=== PATIENT | male | born 1940 | race Caucasian/White ===

== ENCOUNTER → 2017-09-21 | Outpatient (CLI) | payer BC ==
[2017-09-21 09:51] LABS: BASO % 0.3 %; BASO ABS # 0.03 K/uL (0-0.2); COMPLETE YES; EOS % 1.8 %; HEMATOCRIT 45.2 % (42-52); IG% 0.3 %; LYMPH ABS # 2.41 K/uL (1.2-3.4); MEAN CORPUSCULAR HEMOGLOBIN 31.1 pg (25-34); MEAN CORPUSCULAR HGB CONC 34.5 g/dl (32-36); MONO % 5.6 %; PLATELET COUNT 205 K/uL (130-400); RED BLOOD COUNT 5.02 M/uL (4.7-6.1); WHITE BLOOD COUNT 10.04 K/uL (4.8-10.8)
[2017-09-21 10:20] LABS: ALT/SGPT 28 U/L (12-78); BLOOD UREA NITROGEN 26 mg/dl (7-18); CALCIUM 8.8 mg/dl (8.5-10.1); CARBON DIOXIDE 25 mmol/L (21-32); CHLORIDE 107 mmol/L (98-107); CHOLESTEROL 133 mg/dl (0-200); CREATININE 1.36 mg/dl (0.60-1.40); GLUCOSE 96 mg/dl (70-99); SODIUM 140 mmol/L (136-145)
[2017-09-21 10:26] LABS: ALB/GLOB RATIO 0.9 (0.9-2); ALKALINE PHOSPHATASE 68 U/L (45-117); AST/SGOT 25 U/L (15-37); CHOLESTEROL/HDL RATIO 3.5; HDL CHOLESTEROL 38 mg/dl; LDL CHOLESTEROL CALCULATED 68 mg/dl; TRIGLYCERIDES 134 mg/dl (0-150); VERY LOW DENSITY LIPOPROT CALC 27 mg/dl
== END | disposition home or self-care (01) ==
LOC: C.LAB 09:18
PROVIDERS: ATTEND Nurse Practitioner Adult Health
DX: Z00.00 Encounter for general adult medical examination without abnormal findings (principal); Z12.5 Encounter for screening for malignant neoplasm of prostate

== ENCOUNTER → 2018-04-07 | Outpatient (CLI) | payer OTHER ==
--- NOTE | 2018-04-07 14:54 | DIAGNOSTIC IMAGING REPORT ---
L-SPINE MIN 4 VIEWS ROUTINE CLINICAL HISTORY: M54.5 Chronic low back [id number] COMPARISON STUDY: No previous studies for comparison. FINDINGS: There is a moderate spinal curvature. There are moderate multilevel degenerative changes with multilevel disc formation and anterior posterior osteophyte formation. There is right SI joint sclerosis, likely degenerative. There is narrowing of the AP diameter of the spinal canal and underlying spinal stenosis is suspected. MRI might be considered in follow-up. IMPRESSION: 1. No acute fractures or subluxations 2. Moderate multilevel degenerative change. 3. Conventional radiographic findings suggesting underlying spinal stenosis. An MRI could be obtained in follow-up as deemed clinically indicated. Electronically signed by: Jacques Harrell M.D. 04/07/2018 2:53 PM Dictated Date/Time: 04/07/2018 2:52 PM
== END | disposition home or self-care (01) ==
LOC: C.RAD1850 14:35
PROVIDERS: ATTEND Neuromusculoskeletal Medicine & OMM
DX: M54.5 Low back pain (principal)

== ENCOUNTER 2023-02-09 08:04 | Observation (INO) ==
--- NOTE | 2023-02-09 08:57 | Emergency Department Note ---
Impression & Plan Unsteady gait, Balance disorder ED Provider Note INFORMANT: Patient ED PROVIDER(S): Steven Huber DO CHIEF COMPLAINT: Unsteady, balance is off PLAN: Disposition: Admission Outpatient prescription management: none Discussion with: I spoke with the hospitalist, who will see the patient for admission/observation and further evaluation and consultation. MEDICAL DECISION MAKING: This is a 83-year-old male who presents to the ED with a chief complaint of feeling that his balance is off. Initially states he felt a little unusual around noon yesterday while he was watching TV. He states that it felt like someone switched off his brain for second. He then states that last night around 11:30 PM, he was laying in bed reading. He states that the same thing occurred. He felt just slightly dizzy and took a meclizine and went to bed. He reports that he took the meclizine because of some vertigo in the past. The patient states that around 3 AM when he got up to go to the bathroom, he felt like his balance was off and he had to hold the gonsalez in order to get to the bathroom. He also had a little sensation of tingling all over. This morning when he awoke, he continued to feel unsteady as if he is unable to walk. He had not had the symptoms previously. His son states that he has an ataxic gait with leaning towards the right. The patient denies any focal neurologic deficits. Denies any injury or trauma. Denies any recent illness. His vital signs reveal hypertension. His physical exam was unremarkable. No focal neurologic deficits on my exam. Cerebellar testing was within normal limits. No facial droop. No pronator drift. No focal weakness. No nystagmus. EKG shows a sinus rhythm at a rate of 63. CBC did not show anemia or leukocytosis. Chemistry panel shows no electrolyte abnormality or kidney dysfunction. Chest x-ray did not show any clear abnormality. Radiologist suggests some left basilar atelectasis versus pneumonia. Patient has no clinical symptoms of pneumonia when questioned after the chest x-ray was done. Troponin was negative for myocarditis or myocardial infarction. CT scan of the head and angiograms of the head and neck did not show any concerning findings. I did talk to the patient about the results of th e test. The patient will be seen by the hospitalist for further evaluation and care. He was treated with aspirin p.o. Triage Nursing notes reviewed. Vital Signs: reviewed Prior /Outside records reviewed: none Differential diagnosis: CVA, vertigo, anemia, viral syndrome, labyrinthitis, less likely infection, spinal cord issue, other Diagnostics, as interpreted by me: 12 lead ECG: Sinus rhythm rate of 63. First-degree AV block. No ST elevation. No PVCs. Normal QTc Cardiac Monitoring ordered: Sinus rhythm in the 60s Medical decision rules: none Imaging studies: Chest x-ray: No acute disease. No pneumonia. CT scan of the brain: No intracranial hemorrhage. Procedures: none. Critical care: none. HPI: See MDM above. PAST MEDICAL HISTORY: See Below PAST SURGICAL HISTORY: See Below SOCIAL HISTORY: See Below HOME MEDICATIONS: See Below ALLERGIES: See Below VITALS: See Below PHYSICAL EXAMINATION: See MDM for positive findings otherwise unremarkable. CONSTITUTIONAL/VITAL SIGNS: Reviewed GENERAL:done as appropriate INTEGUMENTARY: done as appropriate HEAD: done as appropriate EYES: done as appropriate RESPIRATORY: done as appropriate CARDIOVASCULAR:done as appropriate GI/ABDOMEN:done as appropriate EXTREMITIES: done as appropriate NEUROLOGICAL: done as appropriate PSYCHIATRIC:done as appropriate MUSCULOSKELETAL:done as appropriate TRIAGE NURSING DOCUMENTATION REVIEWED. Past Med/Surg History Medical History Chronic low back pain Chronic sinusitis COPD (chronic obstructive pulmonary disease) Exposure to benzene Pneumonia Renal cyst, bridgeport, hemorrhage Surgical History H/O hernia repair S/P appendectomy Family History Mother Breast cancer Father Colorectal cancer Myocardial infarction Denies family history of Ovarian cancer Prostate cancer Social History Smoking Status: Never smoker Second Hand Exposure: No; Hx Alcohol Use: No Hx Substance Use: No Preferred Language: Albanian Communication Ability: Effective Visual Impairment: No Limitations Hearing Ability: Normal Station Usher Required: No marital status: Current Living Situation: Spouse current occupational status: retired How many Children do You have: 4 Feels Safe at Home: Yes Childhood Exposure to Second-Hand Smoke: Yes caffeine: No during the past year weight has: remained stable Dental Care, Regularly: No Physical Activity Frequency: Daily Seatbelt Use: always Sunscreen Use: No Assistive Devices: Glasses Allergies Allergies Allergy/AdvReac Type Severity Reaction Status Date / Time No Known Allergies Allergy Verified 12/26/22 12:59 Home Meds Home Medications Medication Instructions Recorded Confirmed multivitamin (Daily Multi-Vitamin 1 tab PO DAILY 10/04/19 12/26/22 tablet) Results & Data (ED) Vital Signs Vital Signs - 24 hr 02/09/23 08:05 02/09/23 08:29 02/09/23 08:23 Temperature 36.8 C Temperature Source Skin Pulse Rate 68 63 67 Respiratory Rate 20 20 Respiratory Effort / Characteristics Non-Labored Spontaneous Respiratory Depth Normal Respiratory Pattern Regular Blood Pressure 188/113 H 155/95 H Blood Pressure Mean 138 115 Pulse Oximetry 97 97 Oxygen Delivery Method Room Air Room Air Sepsis Recent Fever Within 48 Hours No Sepsis New/Unexplained Change in Mental Status N/A Sepsis Action Taken by Nursing No Action Required 02/09/23 09:00 02/09/23 09:30 Temperature Temperature Source Pulse Rate 66 62 Respiratory Rate 19 21 Respiratory Effort / Characteristics Respiratory Depth Respiratory Pattern Blood Pressure 152/94 H 154/99 H Blood Pressure Mean 113 117 Pulse Oximetry 96 96 Oxygen Delivery Method Room Air Room Air Sepsis Recent Fever Within 48 Hours Sepsis New/Unexplained Change in Mental Status Sepsis Action Taken by Nursing Laboratory Data 02/09/23 08:30 02/09/23 08:30 Lab Results 02/09/23 02/09/23 02/09/23 Range/Units 08:30 08:30 08:30 WBC 8.85 (4.8-10.8) K/ul RBC 4.91 (4.70-6.10) M/uL Hgb 15.6 (14.0-18.0) g/dl Hct 44.0 (42.0-52.0) % MCV 89.6 (80.0-100.0) fL MCH 31.8 (25.0-34.0) pg MCHC 35.5 (32.0-36.0) g/dL RDW Std Deviation 42.4 (36.4-46.3) fL RDW Coeff of Ngozi 12.8 (11.5-14.5) % Plt Count 214 (130-400) K/uL MPV 9.1 L (9.4-12.4) fL Immature Gran % (Auto) 0.2 % Neut % (Auto) 60.0 % Lymph % (Auto) 28.5 % [place]estone % (Auto) 8.0 % Eos % (Auto) 2.7 % Baso % (Auto) 0.6 % Neut # (Auto) 5.31 (1.40-6.50) K/uL Lymph # (Auto) 2.52 (1.2-3.4) K/uL Limestone # (Auto) 0.71 H (0.11-0.59) K/uL Eos # (Auto) 0.24 (0-0.50) K/uL Baso # (Auto) 0.05 (0-0.2) K/uL Immature Gran # (Auto) 0.02 (0.01-0.20) K/uL PT 10.8 (9.0-12.0) Seconds INR 1.0 (0.9-1.1) APTT 27.1 (21.0-31.0) Seconds PTT Ratio 1.0 Sodium 138 (136-145) mmol/L Potassium 3.8 (3.5-5.1) mmol/L Chloride 106 (98-107) mmol/L Carbon Dioxide 25 (21-32) mmol/L Anion Gap 7 (3-11) BUN 28 H (6-23) mg/dl Creatinine 1.37 (0.6-1.4) mg/dl Est Cr Clr Drug Dosing 46.3 ml/min Est GFR ( Amer) 54.5 ml/min Est GFR (Non-Af Amer) 47.0 ml/min BUN/Creatinine Ratio 20.4 H (10-20) Glucose 152 H (70-99(Fasting)) mg/dl Calcium 8.9 (8.5-10.1) mg/dl Magnesium 2.1 (1.7-2.4) mg/dl Total Bilirubin 0.6 (0.2-1.0) mg/dl AST 20 (13-39) U/L ALT 16 (7-52) U/L Alkaline Phosphatase 56 (34-104) U/L Troponin I High Sens 8.0 (0-20) pg/ml Total Protein 7.5 (6.0-8.3) gm/dl Albumin 4.1 (3.4-5.0) gm/dl Globulin 3.4 (2.5-4.0) gm/dl Albumin/Globulin Ratio 1.2 (0.9-2) Administered Medications Discontinued Medications Ioversol (Optiray 320 500ml) 110 ml IV ONCE ONE Stop: 02/09/23 09:51 Last Admin: 02/09/23 09:50 Dose: 110 ml Documented By: BAR Imaging Data Radiologist's Impression: Chest X-Ray 02/09/23 08:51 XR chest 1V portable HISTORY: 83 years-old Male neuro deficit, acute stroke suspected acute chest pain COMPARISON: None TECHNIQUE: AP view of the chest FINDINGS: Cardiomediastinal and hilar silhouettes are within normal limits. Subsegmental l eft basilar densities with mild left hemidiaphragmatic elevation. No pneumothorax, large pleural effusion or overt pulmonary edema. Degenerative changes of the shoulders and spine. IMPRESSION: Subsegmental left basilar densities may represent atelectasis versus a mild pneumonitis. ACT 112: Negative or not required by law. The above report was generated using voice recognition software. It may contain grammatical, syntax or spelling errors. Electronically signed by: Mauri Witt M.D. 02/09/2023 9:[address] 02/09/23 08:[address] OF THE BRAIN; CT ANGIOGRAM OF THE BRAIN; CT ANGIOGRAM OF THE NECK CLINICAL HISTORY: Strokelike symptoms. Dizziness. Neurological deficit. COMPARISON STUDY: No priors. TECHNIQUE: Unenhanced axial CT scan of the brain is performed. Subsequently, fo llowing the IV administration of 110 of Optiray 320, CT angiogram of the head and neck was performed from the aortic arch to the vertex. Images are reviewed in the axial, sagittal, and coronal planes. 3-D MIPS images are created and assessed. IV contrast was administered without complication. All measurements were calculated based on NASCET criteria. A dose lowering technique was utilized adhering to the principles of ALARA. CT DOSE: 1642.00 mGycm (accession [id number]), 1114.48 mGy.cm (accession [id number]) FINDINGS: Brain parenchyma: There is age-related involutional change noting moderate patchy subcortical and periventricular microangiopathic disease. There is no hemorrhage, mass effect, or evidence of acute territorial ischemia by CT criteria. There is no evidence of enhancing mass lesion on the angiogram phase images. The ventricles, sulci, and cisterns are prominent secondary to involutional change. Godwin-white matter differentiation is preserved. No extra- axial fluid collection is seen. Thoracic aorta: Visualized portions of the thoracic aorta are normal in caliber. The aortic arch demonstrates standard 3-vessel anatomy. Right carotid arterial system: The right common carotid artery is widely patent, as are the right internal and external carotid arteries. The internal carotid artery demonstrates a peak appearance suggesting fibromuscular dysplasia. Left carotid arterial system: The left common carotid artery is widely patent, as are the left internal and external carotid arteries. The internal carotid artery demonstrates a beaded appearance suggesting fibromuscular dysplasia. Vertebral arteries: The vertebral arteries are widely patent bilaterally and codominant. Subclavian arteries: Widely patent bilaterally. Intracranial vasculature: There is atherosclerotic calcification of the cavernous carotid arteries. The internal carotid arteries are patent at the skull base, as are the anterior and middle cerebral arteries bilaterally. The vertebrobasilar system and posterior cerebral arteries are widely patent. The vertebral arteries are codominant.. There is no aneurysm, high-grade stenosis, or focal vessel cut off seen throughout the intracranial circulation. Jugular veins: Patent bilaterally. Dural sinuses: Patent. Lung apices: Partially visualized upper lobe lung parenchyma appears clear. Soft tissues: The visualized pharyngeal soft tissues are normal in appearance noting angiographic phase technique. The oropharyngeal airway appears widely patent. The salivary and thyroid glands are normal in appearance. No cervical lymphadenopathy is seen. Skeletal structures: The skeletal structures are osteopenic. The calvarium appears intact. The cervical spine is within maintained noting multilevel spondylosis. No lytic or blastic lesion is seen. Orbits: The bony orbits are intact. Orbital contents are normal as visualized. Sinuses and mastoids: There is evidence of previous paranasal sinus surgery. There is moderate mucosal thickening in the right maxillary antrum and the sphenoid sinuses. Trace mucosal thickening is seen in the left maxillary sinus. Thickening and sclerosis of the right maxillary sinus wall indicates chronicity. The mastoid air cells are well pneumatized. IMPRESSION: 1. There is no hemorrhage, mass effect, or evidence of acute territorial isc hemia by CT criteria. 2. Unremarkable CT angiogram of the brain. 3. The internal carotid arteries demonstrate a beaded appearance bilaterally suggesting fibromuscular dysplasia. 4. The carotid and vertebral arteries are patent bilaterally no significant stenosis identified. ACT 112: Negative or not required by law. Electronically signed by: Teddy Clarke M.D. 02/09/2023 10:03 AM Head CTA 02/09/23 08:[address] OF THE BRAIN; CT ANGIOGRAM OF THE BRAIN; CT ANGIOGRAM OF THE NECK CLINICAL HISTORY: Strokelike symptoms. Dizziness. Neurological deficit. COMPARISON STUDY: No priors. TECHNIQUE: Unenhanced axial CT scan of the brain is performed. Subsequently, following the IV administration of 110 of Optiray 320, CT angiogram of the head and neck was performed from the aortic arch to the vertex. Images are reviewed in the axial, sagittal, and coronal planes. 3-D MIPS images are created and assessed. IV contrast was administered without complication. All measurements were calculated based on NASCET criteria. A dose lowering technique was utilized adhering to the principles of ALARA. CT DOSE: 1642.00 mGycm (accession [id number]), 1114.48 mGy.cm (accession [id number]) FINDINGS: Brain parenchyma: There is age-related involutional change noting moderate patchy subcortical and periventricular microangiopathic disease. There is no hemorrhage, mass effect, or evidence of acute territorial ischemia by CT criteria. There is no evidence of enhancing mass lesion on the angiogram phase images. The ventricles, sulci, and cisterns are prominent secondary to involutional change. Godwin-white matter differentiation is preserved. No extra- axial fluid collection is seen. Thoracic aorta: Visualized portions of the thoracic aorta are normal in caliber. The aortic arch demonstrates standard 3-vessel anatomy. Right carotid arterial system: The right common carotid artery is widely patent, as are the right internal and external carotid arteries. The internal carotid artery demonstrates a peak appearance suggesting fibromuscular dysplasia. Left carotid arterial system: The left common carotid artery is widely patent, as are the left internal and external carotid arteries. The internal carotid artery demonstrates a beaded appearance suggesting fibromuscular dysplasia. Vertebral arteries: The vertebral arteries are widely patent bilaterally and codominant. Subclavian arteries: Widely patent bilaterally. Intracranial vasculature: There is atherosclerotic calcification of the cavernous carotid arteries. The internal carotid arteries are patent at the skull base, as are the anterior and middle cerebral arteries bilaterally. The vertebrobasilar system and posterior cerebral arteries are widely patent. The vertebral arteries are codominant.. There is no aneurysm, high-grade stenosis, or focal vessel cut off seen throughout the intracranial circulation. Jugular veins: Patent bilaterally. Dural sinuses: Patent. Lung apices: Partially visualized upper lobe lung parenchyma appears clear. Soft tissues: The visualized pharyngeal soft tissues are normal in appearance noting angiographic phase technique. The oropharyngeal airway appears widely patent. The salivary and thyroid glands are normal in appearance. No cervical lymphadenopathy is seen. Skeletal structures: The skeletal structures are osteopenic. The calvarium appears intact. The cervical spine is within maintained noting multilevel spondylosis. No lytic or blastic lesion is seen. Orbits: The bony orbits are intact. Orbital contents are normal as visualized. Sinuses and mastoids: There is evidence of previous paranasal sinus surgery. There is moderate mucosal thickening in the right maxillary antrum and the sphenoid sinuses. Trace mucosal thickening is seen in the left maxillary sinus. Thickening and sclerosis of the right maxillary sinus wall indicates chronicity. The mastoid air cells are well pneumatized. IMPRESSION: 1. There is no hemorrhage, mass effect, or evidence of acute territorial ischemi a by CT criteria. 2. Unremarkable CT angiogram of the brain. 3. The internal carotid arteries demonstrate a beaded appearance bilaterally suggesting fibromuscular dysplasia. 4. The carotid and vertebral arteries are patent bilaterally no significant stenosis identified. ACT 112: Negative or not required by law. Electronically signed by: Teddy Clarke M.D. 02/09/2023 10:03 AM Neck CTA 02/09/23 08:[address] OF THE BRAIN; CT ANGIOGRAM OF THE BRAIN; CT ANGIOGRAM OF THE NECK CLINICAL HISTORY: Strokelike symptoms. Dizziness. Neurological deficit. COMPARISON STUDY: No priors. TECHNIQUE: Unenhanced axial CT scan of the brain is performed. Subsequently, following the IV administration of 110 of Optiray 320, CT angiogram of the head and neck was performed from the aortic arch to the vertex. Images are reviewed in the axial, sagittal, and coronal planes. 3-D MIPS images are created and assessed. IV contrast was administered without complication. All measurements were calculated based on NASCET criteria. A dose lowering technique was utilized adhering to the principles of ALARA. CT DOSE: 1642.00 mGycm (accession [id number]), 1114.48 mGy.cm (accession [id number]) FINDINGS: Brain parenchyma: There is age-related involutional change noting moderate patchy subcortical and periventricular microangiopathic disease. There is no hemorrhage, mass effect, or evidence of acute territorial ischemia by CT criteria. There is no evidence of enhancing mass lesion on the angiogram phase images. The ventricles, sulci, and cisterns are prominent secondary to involutional change. Godwin-white matter differentiation is preserved. No extra- axial fluid collection is seen. Thoracic aorta: Visualized portions of the thoracic aorta are normal in caliber. The aortic arch demonstrates standard 3-vessel anatomy. Right carotid arterial system: The right common carotid artery is widely patent, as are the right internal and external carotid arteries. The internal carotid artery demonstrates a peak appearance suggesting fibromuscular dysplasia. Left carotid arterial system: The left common carotid artery is widely patent, as are the left internal and external carotid arteries. The internal carotid artery demonstrates a beaded appearance suggesting fibromuscular dysplasia. Vertebral arteries: The vertebral arteries are widely patent bilaterally and codominant. Subclavian arteries: Widely patent bilaterally. Intracranial vasculature: There is atherosclerotic calcification of the cavernous carotid arteries. The internal carotid arteries are patent at the skull base, as are the anterior and middle cerebral arteries bilaterally. The vertebrobasilar system and posterior cerebral arteries are widely patent. The vertebral arteries are codominant.. There is no aneurysm, high-grade stenosis, or focal vessel cut off seen throughout the intracranial circulation. Jugular veins: Patent bilaterally. Dural sinuses: Patent. Lung apices: Partially visualized upper lobe lung parenchyma appears clear. Soft tissues: The visualized pharyngeal soft tissues are normal in appearance noting angiographic phase technique. The oropharyngeal airway appears widely patent. The salivary and thyroid glands are normal in appearance. No cervical lymphadenopathy is seen. Skeletal structures: The skeletal structures are osteopenic. The calvarium appears intact. The cervical spine is within maintained noting multilevel spondylosis. No lytic or blastic lesion is seen. Orbits: The bony orbits are intact. Orbital contents are normal as visualized. Sinuses and mastoids: There is evidence of previous paranasal sinus surgery. There is moderate mucosal thickening in the right maxillary antrum and the sphenoid sinuses. Trace mucosal thickening is seen in the left maxillary sinus. Thickening and sclerosis of the right maxillary sinus wall indicates chronicity. The mastoid air cells are well pneumatized. IMPRESSION: 1. There is no hemorrhage, mass effect, or evidence of acute territorial ischemia by CT criteria. 2. Unremarkable CT angiogram of the brain. 3. The internal carotid arteries demonstrate a beaded appearance bilaterally suggesting fibromuscular dysplasia. 4. The carotid and vertebral arteries are patent bilaterally no significant stenosis identified. ACT 112: Negative or not required by law. Electronically signed by: Teddy Clarke M.D. 02/09/2023 10:03 AM Discharge Plan Visit Data Chief Complaint: Dizziness Stated Complaint: STROKE SYMPTOMS ED Provider: Steven Huber Discharge Problem: Unsteady gait, Balance disorder Patient Disposition: Being Evaluated by Hospitalist Forms Stand Alone Forms: [facility], Virtual Emergency Department, Important Visit Information Prescriptions Prescriptions: No Action multivitamin [Daily Multi-Vitamin] tablet 1 tab PO DAILY Referrals Referrals: Dorota Benítez MD [Primary Care Provider] -
[2023-02-09 09:14] LABS: Basophils # (auto) 0.05 K/uL (0-0.2); Basophils % (auto) 0.6 %; Eosinophils # (auto) 0.24 K/uL (0-0.50); Eosinophils % (auto) 2.7 %; Hemoglobin 15.6 g/dl (14.0-18.0); Immature Granulocytes # (auto) 0.02 K/uL (0.01-0.20); Immature Granulocytes % (auto) 0.2 %; Lymphocytes # (auto) 2.52 K/uL (1.2-3.4); Lymphocytes % (auto) 28.5 %; Mean Corpuscular Hemoglobin 31.8 pg (25.0-34.0); Mean Corpuscular Hgb Conc 35.5 g/dL (32.0-36.0); Mean Corpuscular Volume 89.6 fL (80.0-100.0); Mean Platelet Volume 9.1 fL (9.4-12.4); Monocytes # (auto) 0.71 K/uL (0.11-0.59); Neutrophils # (auto) 5.31 K/uL (1.40-6.50); Platelet Count 214 K/uL (130-400); RDW Coefficient of Variation 12.8 % (11.5-14.5); RDW Standard Deviation 42.4 fL (36.4-46.3); Red Blood Count 4.91 M/uL (4.70-6.10); White Blood Count 8.85 K/ul (4.8-10.8)
[2023-02-09 09:20] LABS: Albumin Globulin Ratio 1.2 (0.9-2); Albumin Level 4.1 gm/dl (3.4-5.0); BUN Creatinine Ratio 20.4 (10-20); Bilirubin,Total 0.6 mg/dl (0.2-1.0); Calcium 8.9 mg/dl (8.5-10.1); Creatinine Clr Calc Pharmacy 46.3 ml/min; Est GFR (African American) 54.5 ml/min; Globulin 3.4 gm/dl (2.5-4.0); Magnesium 2.1 mg/dl (1.7-2.4); Potassium 3.8 mmol/L (3.5-5.1); Total Protein 7.5 gm/dl (6.0-8.3)
--- NOTE | 2023-02-09 09:36 | XRay Report ---
XR chest 1V portable HISTORY: 83 years-old Male neuro deficit, acute stroke suspected acute chest pain COMPARISON: None TECHNIQUE: AP view of the chest FINDINGS: Cardiomediastinal and hilar silhouettes are within normal limits. Subsegmental left basilar densities with mild left hemidiaphragmatic elevation. No pneumothorax, large pleural effusion or overt pulmona ry edema. Degenerative changes of the shoulders and spine. IMPRESSION: Subsegmental left basilar densities may represent atelectasis versus a mild pneumonitis. ACT 112: Negative or not required by law. The above report was generated using voice recognition software. It may contain grammatical, syntax o r spelling errors. Electronically signed by: Mauri Witt M.D. 02/09/2023 9:35 AM
[2023-02-09 09:48] LABS: Partial Thromboplastin Time 27.1 Seconds (21.0-31.0); Prothrombin Time 10.8 Seconds (9.0-12.0)
[2023-02-09] MEDS ORDERED: OPTIRAY 320 500ml IV ONE (09:50)
--- NOTE | 2023-02-09 10:05 | CT Scan Report ---
UNENHANCED CT OF THE BRAIN; CT ANGIOGRAM OF THE BRAIN; CT ANGIOGRAM OF THE NECK CLINICAL HISTORY: Strokelike symptoms. Dizziness. Neurological deficit. COMPARISON STUDY: No priors. TECHNIQUE: Unenhanced axial CT scan of the brain is performed. Subsequently, following the IV adminis tration of 110 of [address] 320, CT angiogram of the head and neck was performed from the aortic arch t o the vertex. Images are reviewed in the axial, sagittal, and coronal planes. 3-D MIPS images are cre ated and assessed. IV contrast was administered without complication. All measurements were calculate d based on NASCET criteria. A dose lowering technique was utilized adhering to the principles of ALA RA. CT DOSE: 1642.00 mGycm (accession [id number]), 1114.48 mGy.cm (accession [id number]) FINDINGS: Brain parenchyma: There is age-related involutional change noting moderate patchy subcortical and per iventricular microangiopathic disease. There is no hemorrhage, mass effect, or evidence of acute terr itorial ischemia by CT criteria. There is no evidence of enhancing mass lesion on the angiogram phase images. The ventricles, sulci, and cisterns are prominent secondary to involutional change. Godwin-whi te matter differentiation is preserved. No extra-axial fluid collection is seen. Thoracic aorta: Visualized portions of the thoracic aorta are normal in caliber. The aortic arch demo nstrates standard 3-vessel anatomy. Right carotid arterial system: The right common carotid artery is widely patent, as are the right int ernal and external carotid arteries. The internal carotid artery demonstrates a peak appearance sugge sting fibromuscular dysplasia. Left carotid arterial system: The left common carotid artery is widely patent, as are the left supervisor international reservations al and external carotid arteries. The internal carotid artery demonstrates a beaded appearance sugges ting fibromuscular dysplasia. Vertebral arteries: The vertebral arteries are widely patent bilaterally and codominant. Subclavian arteries: Widely patent bilaterally. Intracranial vasculature: There is atherosclerotic calcification of the cavernous carotid arteries. T he internal carotid arteries are patent at the skull base, as are the anterior and middle cerebral ar teries bilaterally. The vertebrobasilar system and posterior cerebral arteries are widely patent. The vertebral arteries are codominant.. There is no aneurysm, high-grade stenosis, or focal vessel cut o ff seen throughout the intracranial circulation. Jugular veins: Patent bilaterally. Dural sinuses: Patent. Lung apices: Partially visualized upper lobe lung parenchyma appears clear. Soft tissues: The visualized pharyngeal soft tissues are normal in appearance noting angiographic pha se technique. The oropharyngeal airway appears widely patent. The salivary and thyroid glands are nor mal in appearance. No cervical lymphadenopathy is seen. Skeletal structures: The skeletal structures are osteopenic. The calvarium appears intact. The cervic al spine is within maintained noting multilevel spondylosis. No lytic or blastic lesion is seen. Orbits: The bony orbits are intact. Orbital contents are normal as visualized. Sinuses and mastoids: There is evidence of previous paranasal sinus surgery. There is moderate mucosa l thickening in the right maxillary antrum and the sphenoid sinuses. Trace mucosal thickening is seen in the left maxillary sinus. Thickening and sclerosis of the right maxillary sinus wall indicates ch ronicity. The mastoid air cells are well pneumatized. IMPRESSION: 1. There is no hemorrhage, mass effect, or evidence of acute territorial ischemia by CT criteria. 2. Unremarkable CT angiogram of the brain. 3. The internal carotid arteries demonstrate a beaded appearance bilaterally suggesting fibromuscular dysplasia. 4. The carotid and vertebral arteries are patent bilaterally no significant stenosis identified. ACT 112: Negative or not required by law. Electronically signed by: Teddy Clarke M.D. 02/09/2023 10:03 AM
[2023-02-09] MEDS ORDERED: ASPIRIN CHEW 324 MG PO STA (10:35)
--- NOTE | 2023-02-09 10:56 | History & Physical Report ---
Date of Service February 09, 2023 Assessment & Plan (1) Unsteady gait: Plan: Guru is an 83-year-old male with a past medical history of COPD, atrial PACs, renal cyst who was in his normal state of health until around 11:30 PM when his balance was off. Was having difficulty walking straight, initially had some dizziness with first episode but at 3:30 AM and 7 AM episodes after he woke up was having gait ataxia/poor balance without room spinning/vertigo Gait ataxia, poor balance Patient does have history of vertigo and had 1 episode of spinning at onset, however at 3:30 AM and upon waking up was having balance difficulty which was not associated with room spinning/vertigo Patient is fluent, with goal-directed thinking, and answers questions appropriately but per family did seem a little "off "compared to his baseline. No focal strength deficits. No sensory deficits CThead: No acute hemorrhage, mass effect, or ischemia -CTAhead/neck: Unremarkable CT angiogram. Internal carotid arteries demonstrate beaded appearance suggesting fibromuscular dysplasia, carotid and vertebral arteries are patent bilaterally no significant stenosis. -CXR: Subsegmental left basilar densities suspicious for atelectasis versus mild pneumonitis -No leukocytosis, Hemoglobin 15.6 -Potassium, sodium normal Creatinine baseline appears approximately 1.361.42, admitting creatinine is 1.37 Creatinine clearance drug dosing 46/GFR 47 No transaminitis High-sensitivity troponin normal EKG: Incomplete right bundle branch block, sinus rhythm, sinus arrhythmia with first-degree AV block [place] [address] segment changes or T wave inversions Per patient has had a prior echo which was unremarkable. Will update echo with bubble study as part of stroke eval MRI pending, will allow for permissive hypertension pending MRI for posterior CVA PT/OT consulted with Alex pending No history of stroke/CVA. BP normally well controlled without antihypertensives. No tobacco use Received full dose aspirin on admission, will continue low-dose aspirin daily at this time No dysmetria at bedside test Atherosclerotic disease versus fibromuscular dysplasia CRP/ESR pending Is with bilateral involvement Past renal CT with and without contrast 03/2022: 10 mm hemorrhagic cyst with no evidence of enhancing mass. No abnormality of the renal artery/vascular bed noted at that time. Recommend secondary management: Avoid tobacco, antiplatelet, blood pressure control. No role for steroids/anticoagulation Hypertension New in the setting of CVA eval. No prior hypertension or antihypertensives required Allow for permissive hypertension while pending stroke eval DVT prophylaxis: SCDs Disposition: Medical telemetry for stroke eval Diet: Heart healthy post swallow eval CODE STATUS: Full code (2) COPD (chronic obstructive pulmonary disease): (3) Carotid disease, bilateral: History of Present Illness Primary Care Provider: Dorota Benítez MD Guru is an 83-year-old male with a past medical history of COPD, atrial PACs, renal cyst who was in his normal state of health until around 11:30 PM when his balance was off. Was having difficulty walking straight, was not having vertiginous symptoms. It is recommended for admission for stroke evaluation [facility]. Was up in the rbedroom in the [place] morning yesterday wtching the news when all of a sudden he felt like ' all of a sudden someone switched by brain off and then back on " He got up and didn't have any problems with it and had two of his daughters over for lunch and dinner and felt OK at that tiem an for the rest of the day. Had a big meal at [facility], [place] [address] [employer] to get food for his after with no issue driving. Was reading before bed at 1030ish at night and the same thing happended where he felt funny and weird fo ra second or two and the room started to spin on him a little bit.Has a history of labyrinthitis and vertigo but no problems in the last 10 years. Went to the bathroom and took a meclizine and then went to bed and sleep. Woke up around 330am to use the restroom and felt very off balance. Went to the bathroom then went back to bed and again waking up at 7-730 had difficulty with balance and couldn't walk well. At 330 and this morning was having difficulty walking and with balance which was not associated with balance. Did get very dizzy when moving around to go to the CT scanner. Per his son when pts daughter noticed patient seemed 'off' but hard to put a finger on exactly what was off. No toher sx to his notice No fever, chills, sweats. Nose runs chronically, hasd some allergies. Always clear. Intermittent cough, Hasn't brought anything up, dry cough. No hearing change, chronic tinnitus which comes and goes. Both ears. no chest pain or chest pressure. Goes to [employer] 3 days a week and does squats and side lunges get a little short of breath and takes a bit to catch his breath before next thing but is able to do exercises and pushups without difficulty. Some concern for COPD from office mold. [place] [facility] [place] does not remember the results exactly. never smoked, thought to be from fungal exposure. No inhalers, never needed PRn albuterol When walking otu out of the house was veering to the right and unsteady. No focal weakness, transient tingling Echo in the past which was fine Carotid scan was fine. Ntoed some Cervical nerves causing some scalp numbness and tingling. R arm pain intermittently between R elbow and forearm. Medical History: Reviewed Medications: Reviewed Surgical History: Reviewed Family history: Reviewed Allergies: Reviewed Social History: no tobacco use. no alcohol, no rec drugs. Code Status: Full Code Allergies Allergy/AdvReac Type Severity Reaction Status Date / Time No Known Allergies Allergy Verified 12/26/22 12:59 Home Medications Medication Instructions Recorded Confirmed Type multivitamin (Daily Multi-Vitamin 1 tab PO DAILY 10/04/19 12/26/22 History tablet) Past Med/Surg History Medical History Chronic low back pain Chronic sinusitis COPD (chronic obstructive pulmonary disease) Exposure to benzene Pneumonia Renal cyst, [place], hemorrhage Surgical History H/O hernia repair S/P appendectomy Family History Mother Breast cancer Father Colorectal cancer Myocardial infarction Denies family history of Ovarian cancer Prostate cancer Social History Smoking Status: Never smoker Second Hand Exposure: No; Hx Alcohol Use: No Hx Substance Use: No Preferred Language: Pakistani Communication Ability: Effective Visual Impairment: No Limitations Hearing Ability: Normal Spear Fisher Required: No marital status: Current Living Situation: Spouse current occupational status: retired How many Children do You have: 4 Feels Safe at Home: Yes Childhood Exposure to Second-Hand Smoke: Yes caffeine: No during the past year weight has: remained stable Dental Care, Regularly: No Physical Activity Frequency: Daily Seatbelt Use: always Sunscreen Use: No Assistive Devices: Glasses Review of Systems Review of Systems: All systems reviewed & are unremarkable except as noted in HPI & below Physical Exam Physical Exam: General: A&Ox3. NAD. Cooperative. HEENT: Atraumatic, normocephalic. Pulm: CTAB A&P. -wheezes, -rales, -rhonchi. Symmetrical chest rise. No increased work of breathing. No respiratory distress. Cardiac: RRR, -mrg. Radial pulses intact and symmetrical. Abdominal: Nontender, nondistended, soft. BS present. CRANIAL NERVES: II: Pupils equal and reactive, no relative afferent pupillary defect, no VF cuts III, IV, : EOM intact, no gaze preference or deviation, no nystagmus. V: normal sensation in V1, V2, and V3 segments bilaterally VII: no asymmetry, no nasolabial fold flattening VIII: normal hearing to speech IX, X: normal palatal elevation XI: 5/5 head turn XII: midline tongue protrusion MOTOR: RUE: 5/5 Shoulder internal rotation, external rotation 5/5 Elbow flexion/extension 5/5 auto brake technician strength, finger flexion/extension LUE: 5/5 Shoulder internal rotation, external rotation 5/5 Elbow flexion/extension 5/5 auto brake technician strength, finger flexion/extension RLE: 5/5 to hip flexion, ankle dorsiflexion/plantarflexion LLE: 5/5 to hip flexion, ankle dorsiflexion/plantarflexion Coordination: [id number] and [id number] is intact bilaterally without significant abnormality/dysmetria SENSORY: Normal to touch in upper and lower extremities without deficit or asymmetry Results & Data Results & Data Vital Signs (Past 12 Hours) Vital Signs Temp Pulse Resp BP Pulse Ox O2 Del Method 02/09/23 09:30 62 21 154/99 H 96 Room Air 02/09/23 09:00 66 19 152/94 H 96 Room Air 02/09/23 08:23 67 20 155/95 H 97 Room Air 02/09/23 08:29 63 02/09/23 08:05 36.8 C 68 20 188/113 H 97 Room Air PG Care Time/CCT Total # of Minutes Spent Total Time Spent with Patient: Total time spent is greater than 50% in coordination of care (as documented) at patient's floor/unit and/or counseling patient: Coding Level of Care Code 49368 INT INP/OBS CARE MIN Diagnoses Unsteady gait R26.81 COPD (chronic obstructive pulmonary disease) J44.9 Carotid disease, bilateral I77.9
--- NOTE | 2023-02-09 11:04 | Electrocardiogram Report ---
Test Reason : Blood Pressure : / mmHG Vent. Rate : 063 BPM Atrial Rate : 063 BPM P-R Int : 224 ms QRS Dur : 108 ms QT Int : 434 ms P-R-T Axes : 071 -15 021 degrees QTc Int : 444 ms Sinus rhythm with premature atrial contractions. 1st degree AV block (and some evidence of Mobitz 1 conduction) Incomplete right bundle branch block Borderline ECG When compared with ECG of 10-JUL-2005 13:10, [place] interval has increased Incomplete right bundle branch block is now Present Confirmed by Jonathon Morejon ([id number]) on 02/09/2023 11:04:31 AM Referred By: REFERRED SELF Confirmed By:Kaveh Morejon
[2023-02-09] MEDS ORDERED: PHARMACIST DISCHARGE MED REC CONSULT PRN (16:51)
[2023-02-09] MEDS ORDERED: ACETAMINOPHEN 325 MG TAB PO PRN (16:51)
[2023-02-09] MEDS: LIDOCAINE 5% 1 PATCH TD SCH (19:33)
[2023-02-10 07:20] LABS: Basophils # (auto) 0.06 K/uL (0-0.2); Basophils % (auto) 0.7 %; Eosinophils # (auto) 0.24 K/uL (0-0.50); Eosinophils % (auto) 2.7 %; Hematocrit (blood only) 44.1 % (42.0-52.0); Hemoglobin 15.5 g/dl (14.0-18.0); Immature Granulocytes # (auto) 0.03 K/uL (0.01-0.20); Immature Granulocytes % (auto) 0.3 %; Lymphocytes # (auto) 1.85 K/uL (1.2-3.4); Lymphocytes % (auto) 20.5 %; Mean Corpuscular Hemoglobin 31.6 pg (25.0-34.0); Mean Corpuscular Hgb Conc 35.1 g/dL (32.0-36.0); Mean Platelet Volume 9.1 fL (9.4-12.4); Monocytes # (auto) 0.79 K/uL (0.11-0.59); Monocytes % (auto) 8.7 %; Neutrophils # (auto) 6.07 K/uL (1.40-6.50); Neutrophils % (auto) 67.1 %; Platelet Count 208 K/uL (130-400); RDW Coefficient of Variation 12.9 % (11.5-14.5); RDW Standard Deviation 42.4 fL (36.4-46.3); White Blood Count 9.04 K/ul (4.8-10.8)
[2023-02-10 07:29] LABS: Anion Gap 7 (3-11); BUN Creatinine Ratio 22.1 (10-20); Blood Urea Nitrogen 30 mg/dl (6-23); C Reactive Protein < 0.50 mg/dl (0-0.5); Calcium 8.9 mg/dl (8.5-10.1); Carbon Dioxide 23 mmol/L (21-32); Chloride 107 mmol/L (98-107); Chol HDL Ratio 5.5 (0-5); Cholesterol 154 mg/dl (0-200); Creatinine Clr Calc Pharmacy 43.1 ml/min; Est GFR (Non-African American) 47.4 ml/min; Glucose 119 mg/dl (70-99(Fasting)); HDL Cholesterol 28 mg/dl; LDL Cholesterol Calculated 63 mg/dl; Potassium 3.8 mmol/L (3.5-5.1); Sodium 137 mmol/L (136-145); Triglycerides 313 mg/dl (0-150); VLDL Cholesterol 63 mg/dl (0-30)
[2023-02-10 07:50] LABS: Estimated Average Glucose 111 mg/dl; Hemoglobin A1C 5.5 % (4.5-5.6)
--- NOTE | 2023-02-10 07:52 | Magnetic Resonance Report ---
MR brain wo con HISTORY: 83 years-old Male posterior CVA eval acute strokelike symptoms COMPARISON: Head CT 02/09/2023 TECHNIQUE: Multiplanar multisequence MRI of the brain was obtained without the use of IV contrast. FINDINGS: Jockey Room Custodian localizer images demonstrate no gross extracranial abnormality. There is no restricted diffusio n to suggest acute or subacute infarct. Midline structures appear unremarkable. Partially empty sella . Degenerative changes of the cervical spine. No acute intracranial hemorrhage, midline shift, abnormal extra-axial collection, hydrocephalus or in tracranial mass. Involutional changes with moderate T2/FLAIR hyperintense foci throughout the white m atter. No pathologic blooming artifact. Cerebral venous sinuses and major arterial flow voids appear patent. Skull, orbits and soft tissues are unremarkable. Mastoid air cells are clear. Minimal mucosal thickening of the paranasal sinuses. IMPRESSION: 1. No acute intracranial abnormality. No acute or subacute infarct. 2. Involutional changes with moderate chronic microvascular ischemic disease. ACT 112: Negative or not required by law. The above report was generated using voice recognition software. It may contain grammatical, syntax o r spelling errors. Electronically signed by: Mauri Witt M.D. 02/10/2023 7:50 AM
[2023-02-10] MEDS: LIDOCAINE 5% 1 PATCH TD SCH (08:09)
--- NOTE | 2023-02-10 10:15 | XCELERA ---
[id number]
--- NOTE | 2023-02-10 10:34 | Neurology Consultation ---
Date of Consultation February 10, 2023 Assessment & Plan (1) Vertigo: (2) Unsteady gait: (3) Carotid disease, bilateral: Plan 83-year-old male presenting with vertigo, imbalance, transient ataxia with tendency to list to the right per emergency department documentation. Symptoms have resolved, currently has an intact neurological examination. No evidence of acute or subacute stroke on MRI. 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 This finding is of doubtful clinical significance, however, in the context of his current admission. Although I suspect patient's symptoms are peripheral, either BPPV or possibly Mnire's disease, a TIA localizing to the posterior circulation is not completely excluded. 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 Patient's lipids are fairly normal, apart from elevated triglycerides, his LDL is 63, I see no compelling reason to start a statin at this time. Patient has been fairly hypertensive in the context of this hospitalization although his blood pressure does appear to be improving this morning. He will need ongoing monitoring of his blood pressure as an outpatient, if it remains elevated, would need to consider starting treatment, may follow-up with his PCP for this issue. May allow for permissive hypertension acutely, systolic blood pressure goal 140 to 160 mmHg. May utilize meclizine on an as-needed basis to address vertigo. May also consider referral to physical therapy if symptoms recur. Would also recommend 30-day mobile cardiac outpatient telemetry. 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 A follow-up carotid ultrasound in 3 to 6 months would not be unreasonable. Again, there does not appear to be significant stenosis or narrowing, however, on CT angiography. Likewise, there is no evidence of dissection or aneurysm. Probably does not require additional neurologic monitoring in the outpatient setting. However, if requested, I would be happy to see him for a hospital follow-up in 2 to 3 weeks. May be seen by either myself or an [facility]. History of Present Illness Reason for Consultation: ataxia, vertigo, concern for stroke Requesting Physician: Irwin Mcdonald MD Attending Physician: Arnol Cummins MD History of Present Illness The patient is an 83-year-old male with a chief complaint of dizziness, imbalance, transient vertiginous sensation beginning acutely the day prior to his assessment in the emergency department yesterday. Initial episode lasting only a few seconds, had another episode the previous night with associated difficulty with balance while walking to the bathroom. Went back to sleep, feeling of imbalance persisted the following morning with difficulty walking, prompting his assessment in the emergency department. Noted to be ataxic, tendency to lean to the right prompting concern for possible stroke. Patient does have a history of intermittent vertigo for which she has an old prescription for meclizine. His symptoms are not completely dissimilar to his vertigo although the persistent ataxia was again concerning for possible stroke. His symptoms have resolved this morning. Upon further questioning he reports a history of episodic dizziness or vertigo, typically triggered by movement. Denies experiencing vertigo when lying flat or turning his head to the left or right. History notable for tinnitus. Denies other focal or localizing neurologic symptoms at this time such as crossed sensory loss, dysarthria, diplopia, ptosis, vision change, or focal weakness. He has been hypertensive in the context of this current hospitalization although blood pressure appears to be improving this morning. A CT of the head including CT angiogram of the head and neck was completed. No evidence of hemorrhage or acute process. CT angiogram did reveal a mild beaded appearance of both internal carotid arteries potentially consistent with fibromuscular dysplasia. No significant stenotic lesion identified, no aneurysm or dissection. A follow-up brain MRI is negative for acute or subacute infarct. There is chronic microvascular ischemic disease and mild atrophy. I did independently review these images and was able to identify these findings as described by the interpreting radiologist. An electrocardiogram revealed a sinus rhythm with PACs, first-degree AV block. Allergies Allergy/AdvReac Type Severity Reaction Status Date / Time No Known Allergies Allergy Verified 02/09/23 15:07 Home Medications Medication Instructions Recorded Confirmed Type multivitamin (Daily Multi-Vitamin 1 tab PO DAILY 10/04/19 02/09/23 History tablet) Patient History Medical History Chronic low back pain Chronic sinusitis COPD (chronic obstructive pulmonary disease) Exposure to benzene Pneumonia Renal cyst, [place], hemorrhage Surgical History H/O hernia repair S/P appendectomy Family History Mother Breast cancer Father Colorectal cancer Myocardial infarction Denies family history of Ovarian cancer Prostate cancer Social History Smoking Status: Never smoker Second Hand Exposure: No; Hx Alcohol Use: No Hx Substance Use: No Preferred Language: Zambian Communication Ability: Effective Visual Impairment: No Limitations Hearing Ability: Normal Director Of Advertising Sales Required: No Beliefs That Will Affect Care: None marital status: Current Living Situation: Spouse current occupational status: retired How many Children do You have: 4 Other Information That Helps Us Care for You: No Feels Safe at Home: Yes Safety Concerns: Feels Safe At This Time Childhood Exposure to Second-Hand Smoke: Yes caffeine: No during the past year weight has: remained stable Dental Care, Regularly: No Physical Activity Frequency: Daily Seatbelt Use: always Sunscreen Use: No Assistive Devices: Glasses Review of Systems Constitutional: no fever and no chills Eyes: no blind spots and no diplopia Ear, Nose, Mouth, Throat: no ear pain and no tinnitus Respiratory: no cough and no dyspnea Cardiovascular: no chest pain and no palpitations Gastrointestinal: no nausea and no vomiting Genitourinary: no dysuria Musculoskeletal: no neck pain and no myalgia Integumentary: no rash and no lesions Neurologic: as per Subjective / HPI Psychiatric: no depression and no anxiety Hematologic / Lymphatic: no easy bleeding and no easy bruising Exam (Neuro) Constitutional: well developed and well nourished; no acute distress Eyes: normal visual vance by confrontation, PERRL, normal accommodation and EOM intact bilaterally; no fundoscopic abnormality, no nystagmus and no papilledema Cardiovascular: Vessels: normal carotid upstroke; no carotid bruit Neurologic: Oriented to:: Person, Place and Time Memory: Short Term Intact and Remote Intact Attention: Span Intact and Concentration Intact Language: Naming Objects and Repeating Phrases Speech Fluency: negative Dysarthria Speech Aphasia: negative Aphasia Fund of Knowledge: Current Events, Past History and Vocabulary Cranial Nerves: Normal II (Visual vance full to confrontation, visual acuity normal), III, IV, (Pupils equal round reactive to light and accommodation, eye movements normal), V (Facial sensation intact), VII (There is no facial droop or weakness), VIII (Hearing intact), IX, X (Palate elevates to midline), XI (Shoulder shrug intact) and XII (Tongue protrudes to midline) Motor Strength: Normal Lower Extremities and Normal Upper Extremities; negative Pronator Drift Motor Tone: Normal Lower Extremities and Normal Upper Extremities Muscle Bulk/Involuntary Movements: No Involuntary Movements; negative Muscle Atrophy Sensation: Light Touch Intact, Pain/Temperature Intact, Vibration Intact and Proprioception Intact Coordination: Normal; negative Limited Balance, Dysdiadochokinesia, Finger-Nose Abnormal or Heel-Snell Abnormal Deep Tendon Reflexes: Rt Triceps: 2+, Lt Triceps: 2+, Rt Biceps: 2+, Lt Biceps: 2+, Rt Brachioradialis: 2+, Lt Brachioradialis: 2+, Rt Patellar: 2+, Lt Patellar: 2+, Rt Ankle: 2+ and Lt Ankle: 2+ Special Tests: negative Babinski Present Gait: Normal Station and Gait Results & Data Vital Signs (Past 12 Hours) Vital Signs Temp Pulse Pulse Resp BP Pulse Ox O2 Del Method 02/10/23 07:45 36.3 C L 67 19 133/87 95 Room Air 02/10/23 03:15 36.5 C 60 18 147/83 H 97 Room Air 02/09/23 23:00 67 02/09/23 23:15 36.6 C 69 20 159/81 H 94 Room Air Laboratory Results WBC 9.04, hemoglobin 15.5, hematocrit 44.1, platelet count 208, sodium 137, potassium 3.8, BUN 30, creatinine 1.36, glucose 119, hemoglobin A1c 5.5, calcium 8.9, magnesium 2.1, CRP less than 0.50, triglycerides 313, cholesterol 154, LDL 63, VLDL 63, HDL [address] of the head, CT angiography of the head and neck, and brain MRI are as d escribed in the history of present illness, I did independently review the studies. Transthoracic echocardiogram completed today revealed normal left ventricular systolic function, no intra-atrial shunt, mild mitral annular calcification, right ventricular systolic pressure normal, left atrial size normal, EF 55 to 60%. Electrocardiogram revealed a normal sinus rhythm with premature atrial contr actions, first-degree AV block, incomplete right bundle branch block, heart rate 63 bpm. PG Care Time/CCT Total # of Minutes Spent Total Time Spent with Patient: Total time spent is greater than 50% in coordination of care (as documented) at patient's floor/unit and/or counseling patient: Coding Level of Care Code 56195 INT INP/OBS CARE 2MIN Diagnoses Vertigo R42 Unsteady gait R26.81 Carotid disease, bilateral I77.9
[2023-02-10] MEDS: MECLIZINE HCL 25 MG TAB PO SCH ×2 (13:28→20:48)
[2023-02-10] MEDS: ASPIRIN 81 MG ECTAB PO SCH (13:51)
[2023-02-10] MEDS: methylPREDNISolone 40 MG in SYRINGE 0 ML IV SCH ×2 (13:51→20:48)
--- NOTE | 2023-02-10 13:57 | Hospitalist Progress Note ---
Date of Service February 10, 2023 Assessment & Plan (1) Unsteady gait: Plan: This appears to be due to acute labyrinthitis. Brain MRI scan negative for acute CVA. Head CT scan negative. Head and neck CTA negative. Cardiac echo with bubble study pending. Case discussed with his son. We will schedule meclizine 3 times daily and give several doses of intravenous Solu-Medrol. Continue OT and PT. Hopefully he can go home tomorrow, February 11 (2) COPD (chronic obstructive pulmonary disease): Plan: Stable. Continue current medical management (3) Carotid disease, bilateral: Plan: Consider serial evaluations every 6 months (4) Renal cyst, [place], hemorrhage: Plan: No intervention necessary at this time (5) Arthritis: Plan: Underlying osteoarthritis. NSAID treatment as needed (6) Atrial premature complex: Plan: Stable. No need for acute intervention at this time. Plan Hopefully home tomorrow, February 11, on scheduled meclizine and a tapering dose of prednisone Admission and Anticipated Discharge Date Admission Date: February 09, 2023 Subjective Alert and oriented. Pleasant. Brain MRI scan negative for CVA. Cardiac echo with bubble study report pending. His symptoms appear to be due to acute labyrinthitis. I spoke to his son by phone. He will be placed on scheduled meclizine dosing along with several doses of intravenous Solu-Medrol. Hopefully he can go home tomorrow, February 11, on scheduled meclizine and a prednisone tapering dose. Review of Systems Review of Systems: Constitutional-no fever or chills ENT-no blurred vision, no double vision, no epistaxis, no sore throat Respiratory-no cough, no wheezing, no shortness of breath Cardiac-no palpitations, no chest pain, no syncope GI-no nausea, vomiting, diarrhea, melena, hematochezia -no urinary retention, no urinary incontinence, no dysuria, no hematuria Musculoskeletal-no joint pain, no muscle tenderness Skin-no bruising, no rashes, no pruritus Neuro-no isolated weakness, no paresthesia. Psych-no depression, no anxiety Physical Exam Physical Exam: General-alert and oriented x3, no fevers, no chills HEENT-head atraumatic and normocephalic, pupils equal and reactive to light, ex traocular muscles intact Neck-no lymphadenopathy or thyromegaly, trachea midline Chest-clear to auscultation percussion. No rales wheezing or rhonchi Cardiac-regular rate and rhythm, normal S1 and S2 Abdomen-normal bowel sounds, nontender, no hepatosplenomegaly Extremities-no cyanosis, clubbing, or edema Neuro-cranial nerves II through XII intact, motor and sensory function within normal limits, strength symmetrical , no focal deficits Psych-normal affect, normal mood Results & Data Results & Data Vital Signs (Past 12 Hours) Vital Signs Temp Pulse Resp BP Pulse Ox O2 Del Method 02/10/23 12:18 36.5 C 68 20 153/87 H 94 Room Air 02/10/23 07:45 36.3 C L 67 19 133/87 95 Room Air 02/10/23 03:15 36.5 C 60 18 147/83 H 97 Room Air Laboratory Results 02/10/23 06:46 02/10/23 06:46 PG Care Time/CCT Total # of Minutes Spent Total Time Spent with Patient: Total time spent is greater than 50% in coordination of care (as documented) at patient's floor/unit and/or counseling patient: Coding Level of Care Code 25831 SUB INP/OBS CARE 3/50MIN Diagnoses Unsteady gait R26.81 COPD (chronic obstructive pulmonary disease) J44.9 Carotid disease, bilateral I77.9 Renal cyst, [place], hemorrhage N28.89; N28.1 Arthritis M19.90 Atrial premature complex I49.1
--- NOTE | 2023-02-10 13:58 | Pharmacy Report ---
- Date of Service February 10, 2023 - Pharmacy CVA/TIA Medication Review Medications to Prevent Stroke handout has been added to the patients discharge packet. Antiplatelet(s) * Aspirin 81 mg PO daily Cholesterol * High intensity statin deferred due to age >75 w/ LDL <70 DVT Prophylaxis * SCD knee Therapeutic Anticoagulation * No history of Afib/Aflutter noted Type 2 Diabetes * Patient does not have T2DM
[2023-02-11] MEDS: methylPREDNISolone 40 MG in SYRINGE 0 ML IV SCH (05:19)
[2023-02-11] MEDS: ASPIRIN 81 MG ECTAB PO SCH (08:31)
[2023-02-11] MEDS: MECLIZINE HCL 25 MG TAB PO SCH (08:31)
[2023-02-11] MEDS: LIDOCAINE 5% 1 PATCH TD SCH (08:32)
--- NOTE | 2023-02-11 11:14 | Discharge Summary ---
Date of Service February 11, 2023 Admission HPI Per Admitting Provider Guru is an 83-year-old male with a past medical history of COPD, atrial PACs, renal cyst who was in his normal state of health until around 11:30 PM when his balance was off. Was having difficulty walking straight, was not having vertiginous symptoms. It is recommended for admission for stroke evaluation Guru is [facility] at [facility] bedside with his son. Was up in the rbedroom in the laste morning yesterday wtching the news when all of a sudden he felt like ' all of a sudden someone switched by brain off and then back on " He got up and didn't have any problems with it and had two of his daughters over for lunch and dinner and felt OK at that tiem an for the rest of the day. [facility] [facility] [employer] to get food for his after with no issue driving. Was reading before bed at 1030ish at night and the same thing happended where he felt funny and weird fo ra second or two and the room started to spin on him a little bit.Has a history of labyrinthitis and vertigo but no problems in the last 10 years. Went to the bathroom and took a meclizine and then went to bed and sleep. Woke up around 330am to use the restroom and felt very off balance. Went to the bathroom then went back to bed and again waking up at 7-730 had difficulty with balance and couldn't walk well. At 330 and this morning was having difficulty walking and with balance which was not associated with balance. Did get very dizzy when moving around to go to the CT scanner. Per his son when pts daughter noticed patient seemed 'off' but hard to put a finger on exactly what was off. No toher sx to his notice No fever, chills, sweats. Nose runs chronically, hasd some allergies. Always clear. Intermittent cough, Hasn't brought anything up, dry cough. No hearing change, chronic tinnitus which comes and goes. Both ears. no chest pain or chest pressure. Goes to [employer] 3 days a week and does squats and side lunges get a little short of breath and takes a bit to catch his breath before next thing but is able to do exercises and pushups without difficulty. Some concern for COPD from office mold. PFTs at [facility] were suggestive of mild COPD does not remember the results exactly. never smoked, thought to be from fungal exposure. No inhalers, never needed PRn albuterol When walking otu out of the house was veering to the right and unsteady. No focal weakness, transient tingling Echo in the past which was fine Carotid scan was fine. Ntoed some Cervical nerves causing some scalp numbness and tingling. R arm pain intermittently between R elbow and forearm. Medical History: Reviewed Medications: Reviewed Surgical History: Reviewed Family history: Reviewed Allergies: Reviewed Social History: no tobacco use. no alcohol, no rec drugs. Code Status: Full Code Principal Diagnosis Acute labyrinthitis with imbalance Discharge Exam General-alert and oriented x3, no fevers, no chills HEENT-head atraumatic and normocephalic, pupils equal and reactive to light, extraocular muscles intact Neck-no lymphadenopathy or thyromegaly, trachea midline Chest-clear to auscultation percussion. No rales wheezing or rhonchi Cardiac-regular rate and rhythm, normal S1 and S2 Abdomen-normal bowel sounds, nontender, no hepatosplenomegaly Extremities-no cyanosis, clubbing, or edema Neuro-cranial nerves II through XII intact, motor and sensory function within normal limits, strength symmetrical , no focal deficits Psych-normal affect, normal mood Discharge Data Allergies Allergy/AdvReac Type Severity Reaction Status Date / Time No Known Allergies Allergy Verified 02/09/23 15:07 Consultations 02/09/23 16:51 Consult Neurology Routine Ordered Studies 02/09/23 08:51 CT angio head w con Stat CT angio neck with con Stat CT head/brain wo con Stat 02/09/23 16:51 MR brain wo con Routine Hospital Course (1) Unsteady gait: due to acute labyrinthitis. Brain MRI scan negative for acute CVA. Head CT scan negative. Head and neck CTA negative. Cardiac echo with bubble study pending. Case discussed with his son. He has responded nicely to meclizine 3 times daily and several doses of intravenous Solu-Medrol. He received OT and PT. home today, February 11, on meclizine and a tapering dose of prednisone. (2) COPD (chronic obstructive pulmonary disease): Stable. Continue current medical management (3) Carotid disease, bilateral: Consider serial evaluations every 6 months (4) Renal cyst, [place], hemorrhage: No intervention necessary at this time (5) Arthritis: Underlying osteoarthritis. NSAID treatment as needed (6) Atrial premature complex: Stable. No need for acute intervention at this time. Plan Home today, February 10, on scheduled meclizine and a tapering dose of prednisone Total Time Total Time Spent Total Time Spent (In Minutes): 40 minutes Discharge Plan Discharge Items Patient Disposition: Home - Self-Care Reason For Visit: POOR BALANCE/ATAXIA, CVA EVAL Discharge Diagnosis: Acute labyrinthitis with imbalance Activity: Resume your previous activity Non-emergency contact: Primary Care Provider Call non-emergency contact if: you have any medication questions Follow-up/Referrals: Dorota Benítez MD [Primary Care Provider] - Diet: Regular and Heart Healthy Addtl Attending Provider Instructions: Take prednisone in a tapering dose fashion until gone as directed. Take meclizine until there are no symptoms of imbalance then stop. Pending Studies at Discharge: No Stand-Alone Forms: My [facility] [employer], Smoking Cessation, Medications to Prevent Stroke Medications and DC Order Prescriptions: New meclizine 25 mg Tablet 25 mg PO TID Qty: 30 0RF prednisone 10 mg tablet See Rx Instructions .ROUTE .COMPLEX Qty: 12 0RF Rx Instructions: 10 mg orally 3 times a day for 2 days, then 10 mg twice a day for 2 days, then 10 mg daily for 2 days, then stop aspirin 81 mg Tablet,Delayed Release (Dr/Ec) 81 mg PO QAM Qty: 0 0RF Continued multivitamin [Daily Multi-Vitamin] tablet 1 tab PO DAILY Discharge Orders: Discharge Order (Routine); Ordered 02/11/23 Ordered By: Arnol Cummins Admission Data Admit Date/Time: 02/09/23 11:49 Attending Provider: Arnol Cummins Admit Provider: Irwin Mcdonald Primary Care Provider: Dorota Benítez Other Providers: Jag Nash Coding Level of Care Code 12307 INP/OBS DISCH >30 MIN Diagnoses Unsteady gait R26.81 COPD (chronic obstructive pulmonary disease) J44.9 Carotid disease, bilateral I77.9 Renal cyst, [place], hemorrhage N28.89; N28.1 Arthritis M19.90 Atrial premature complex I49.1
[2023-02-11] MEDS ORDERED: STROKE PATIENT DISCHARGE STA (11:15)
--- NOTE | 2023-02-12 13:57 | Pharmacy Report ---
Pharmacist Stroke Counseling - Date of Service February 12, 2023 - Scope: Pharmacy has been consulted to provide medication discharge counseling for this patient admitted with transient ischemic attack as per the Pharmacist Discharge Counseling for Stroke Patients Protocol. - Medications on Discharge: Home Medications Medication Instructions Recorded Confirmed multivitamin (Daily Multi-Vitamin 1 tab PO DAILY 10/04/19 02/12/23 tablet) New Rx's Medication Instructions Recorded aspirin 81 mg tablet,delayed 81 mg PO QAM #0 tabs 02/11/23 release meclizine 25 mg tablet 25 mg PO TID #30 tabs 02/11/23 prednisone 10 mg tablet See Rx Instructions .Route 02/11/23 .COMPLEX #12 tabs - Action: The above medications, specifically ones for stroke treatment/prophylaxis, have been reviewed in detail with the patient over the phone post- discharge. This includes indication, common adverse reactions, drug interactions, and medication administration. Medication counseling has been employed using the teach-back method to ensure understanding. - Outcome: The patient has demonstrated understanding of the medications. Additional comments: Patient also stated he plans to go to his appointment with PCP Dr. Benítez tomorrow. Thank you for allowing pharmacy to be involved in the care of this patient. Please call [phone] with any additional questions
--- NOTE | 2023-02-26 07:34 | Coding Query ---
A supporting diagnosis is required for the test/procedure performed on this patient in order for us to be reimbursed by the patient's insurance. Please provide a supporting diagnosis for the following test/procedure listed below next to the test name along with your signature. *If there is no additional diagnosis for this patient that would support the following test/procedure please document that below next to the test/procedure. Test(s)/Procedure(s) that require a supporting diagnosis: * 11467 HEMOGLOBIN A1C DIAGNOSIS: R26.0 Gait Ataxia; CVA Evaluation DATE OF SERVICE: 02/10/23 Provider Signature: Irwin Mcdonald IV Date: ____03/02/23___ Thank you Marlo [facility] Health Information Management Once completed, please kindly fax back to [phone] For questions please call [phone] MAGO
== END 2023-02-11 12:18 | disposition home or self-care (01) ==
LOC: 2S 08:04 → ED 08:04 → SUATTDRO 11:49 → 2S 16:31